=== PATIENT | male | born 1975 | race Caucasian/White ===

== ENCOUNTER → 2020-12-29 | Outpatient (CLI) | payer OTHER ==
[~2020-12-29] MED LIST: OMEPRAZOLE20 M1 PO; ONDANSETRON ODT4 MG PO
== END ==
LOC: KOH-I 14:40
DX: M54.40 Lumbago with sciatica, unspecified side (principal); M47.816 Spondylosis without myelopathy or radiculopathy, lumbar region
CPT/HCPCS: 72100